=== PATIENT | male | born 1975 | race African-American/Black ===

== ENCOUNTER 2017-08-20 11:50 | Observation (INO) ==
[2017-08-20] MEDS ORDERED: LACTATED RINGERS 1,000 ML IV STA (12:09)
[2017-08-20] MEDS ORDERED: HYDROmorphone 2 MG/1 ML VIAL IV STA ×3 (12:09→14:00)
[2017-08-20] MEDS ORDERED: ONDANSETRON 4 MG/2 ML VIAL IV STA (12:09)
[2017-08-20] MEDS ORDERED: ONDANSETRON 4 MG/2 ML VIAL ONE (12:13)
[2017-08-20] MEDS ORDERED: HYDROmorphone 2 MG/1 ML VIAL ONE ×2 (12:14→13:48)
[2017-08-20 12:31] LABS: Basophils % 0.3 % (0.0-0.8); Eosinophils # 0.1 10*3/uL (0.0-0.87); Hematocrit 38.1 VOL% (42.0-52.0); Hemoglobin 12.3 GM/DL (14.0-18.0); Immature Granulocytes % 0.3 %; Immature Granulocytes Absolute 0.02 #; Lymphocytes # 1.5 10*3/uL (1.4-4.0); Lymphocytes % 24.1 % (21.2-54.2); Mean Corpuscular HGB Conc 32.3 GM/DL (32-36); Mean Corpuscular Hemoglobin 24 PG (27-34); Mean Platelet Volume 9.8 FL (9.6-12.0); Monocytes # 0.6 10*3/uL (0.11-0.8); Monocytes % 9.4 % (1.7-12.7); Neutrophils # 4.1 10*3/uL (1.4-7.4); Neutrophils % 64.9 % (38.7-73.9); Platelet Count 234 T/CUMM (130-400); Red Blood Count 5.15 MC/CUMM (3.8-5.5); Red Cell Distribution Width 16.5 % (9.3-17.3); White Blood Count 6.3 T/CUMM (4-12)
[2017-08-20 12:41] LABS: INR 0.9; PT Patient Result 9.7 SECS; Partial Thromboplastin Time 24.6 SECS (0-40)
[2017-08-20 12:53] LABS: Lactic Acid 1.5 MMOL/L (0.4-2.0)
[2017-08-20 13:02] LABS: Barbiturates Screen,Urine Negative (Negative); Benzodiazepines Screen,Urine Positive (Negative); Cannabinoid Screen,Urine Negative (Negative); Opiate Screen,Urine Positive (Negative); Phencyclidine Screen,Urine Negative (Negative)
[2017-08-20 13:08] LABS: Alanine Aminotransferase 77 U/L (16-61); Albumin 3.9 G/DL (3.4-5.0); Alkaline Phosphatase 85 U/L (45-117); Amylase 69 U/L (25-115); Aspartate Amino Transferase 29 U/L (0-37); Bilirubin,Total < 0.39 MG/DL (0.2-1.0); Blood Urea Nitrogen 18 MG/DL (7-18); Calcium 9.5 MG/DL (8.5-10.1); Glucose 71 MG/DL (74-106); Osmolality,Calculated 278.4 MOS/KG (273-304); Potassium 3.6 MMOL/L (3.5-5.1); Sodium 140 MMOL/L (136-145); Total Protein 7.9 G/DL (6.4-8.3)
[2017-08-20] MEDS ORDERED: SODIUM CHLORIDE 0.9% 1,000 ML IV STA (13:11)
[2017-08-20] MEDS ORDERED: HYDROmorphone 2 MG/1 ML VIAL IM STA (13:59)
[2017-08-20] MEDS ORDERED: ONDANSETRON 4 MG/2 ML VIAL IV PRN (15:55)
[2017-08-20] MEDS ORDERED: ACETAMINOPHEN 325 MG TABLET PO PRN (15:55)
[2017-08-20] MEDS: DEXTROSE 5% LACTATED RINGERS 1,000 ML IV SCH (19:22)
[2017-08-20] MEDS: HYDROmorphone 2 MG/1 ML VIAL IV PRN (19:22)
[2017-08-20] MEDS: amLODIPine 5 MG TABLET PO SCH (21:24)
[2017-08-21] MEDS: HYDROmorphone 2 MG/1 ML VIAL IV PRN ×6 (01:52→22:41)
[2017-08-21] MEDS: DEXTROSE 5% LACTATED RINGERS 1,000 ML IV SCH ×4 (03:08→22:41)
[2017-08-21 05:46] LABS: Basophils % 0.8 % (0.0-0.8); Eosinophils # 0.1 10*3/uL (0.0-0.87); Eosinophils % 3.1 % (0.00-10.9); Hematocrit 34.7 VOL% (42.0-52.0); Hemoglobin 11.1 GM/DL (14.0-18.0); Immature Granulocytes % 0.5 %; Immature Granulocytes Absolute 0.02 #; Lymphocytes # 1.1 10*3/uL (1.4-4.0); Lymphocytes % 28.6 % (21.2-54.2); Mean Corpuscular Hemoglobin 24 PG (27-34); Mean Corpuscular Volume 75.9 FL (87-102); Monocytes # 0.3 10*3/uL (0.11-0.8); Monocytes % 8.4 % (1.7-12.7); Neutrophils # 2.2 10*3/uL (1.4-7.4); Neutrophils % 58.6 % (38.7-73.9); Platelet Count 202 T/CUMM (130-400); Red Blood Count 4.57 MC/CUMM (3.8-5.5); Red Cell Distribution Width 16.4 % (9.3-17.3); White Blood Count 3.8 T/CUMM (4-12)
[2017-08-21 06:16] LABS: Calcium 8.4 MG/DL (8.5-10.1); Osmolality,Calculated 277.5 MOS/KG (273-304); Potassium 3.7 MMOL/L (3.5-5.1)
[2017-08-21] MEDS: PANTOPRAZOLE 40 MG TABLET PO SCH (08:09)
[2017-08-21] MEDS: LISINOPRIL/HCTZ 20-25 MG TABLET PO SCH (08:09)
[2017-08-21] MEDS ORDERED: PANTOPRAZOLE 40 MG TABLET PO SCH (09:00)
[2017-08-21] MEDS ORDERED: DIAZEPAM 10 MG/2 ML SYRINGE IV ONE (09:30)
[2017-08-21] MEDS: traZODone 50 MG TABLET PO SCH (21:28)
[2017-08-21] MEDS: amLODIPine 5 MG TABLET PO SCH (21:28)
[2017-08-22] MEDS: DEXTROSE 5% LACTATED RINGERS 1,000 ML IV SCH ×3 (02:27→13:15)
[2017-08-22] MEDS: HYDROmorphone 2 MG/1 ML VIAL IV PRN ×5 (03:01→21:49)
[2017-08-22] MEDS: LISINOPRIL/HCTZ 20-25 MG TABLET PO SCH (09:25)
[2017-08-22] MEDS: PANTOPRAZOLE 40 MG TABLET PO SCH (09:26)
[2017-08-22] MEDS: traZODone 50 MG TABLET PO SCH (20:43)
[2017-08-22] MEDS: amLODIPine 5 MG TABLET PO SCH (20:43)
[2017-08-23] MEDS: HYDROmorphone 2 MG/1 ML VIAL IV PRN ×3 (02:47→10:44)
[2017-08-23] MEDS: PANTOPRAZOLE 40 MG TABLET PO SCH (08:21)
[2017-08-23] MEDS: LISINOPRIL/HCTZ 20-25 MG TABLET PO SCH (08:21)
[2017-08-23 11:51] VITALS: BP 165/105
== END 2017-08-23 13:00 | disposition home or self-care (01) ==
LOC: N.ED 11:50 → N.EDINP 11:50 → N.3E 18:51
PROVIDERS: ADMIT Surgery; ATTEND Surgery